=== PATIENT | female | born 1945 | race Caucasian/White ===

== ENCOUNTER → 2018-02-14 | Outpatient (REF) | payer MEDICARE, OTHER ==
[~2018-02-14] MED LIST: ALENDRONATE70 MG PO; AMOXICILLIN/CL875 MG PO; ARTHRITIS PAIN650 MG OR; ASTEPRO0.15 %; ASTEPRO137 MC1; ASTEPRO137 MC1 NAB; AUGMENTIN875TAB PO; BONIVA150 MG PO; CLOBETASOL0.053 EX; CRESTOR10 MG PO; DHA OMEGA OR; FLUARIX QUADRIV1 INJ IM; FLUZONE SPLT1 M1 IM; FOSAMAX70 MG PO; MEDDOSEPAK PO; METOPROL TAR25 MG PO; MULTI VITAMN OR; NASONEX50 MCG/AC IN; NASONEX50 MCG/AC NAB; NEXIUM40 M1 PO; OMEPRAZOLE20 MG PO; OMEPRAZOLE40 MG PO; PAIN RELIEF500 MG PO; PATANASE0.6 %; PRAVASTATIN SOD40 MG PO; PRAVASTATIN20 MG PO; RESTASIS0.05 %; SINGULAIR10 MG PO; SYNTHROID88 MCG PO; TRAMADOL HCL50 MG PO; TYLENOL PM PO; VITAMIN D-32000 UNIT OR; VITAMIN D32000 UNIT PO; ZOSTAVAX IM
[2018-02-14 07:51] LABS: HEMATOCRIT 37.7 % (37.0-47.0); HEMOGLOBIN 12.2 g/dl (12.0-16.0); MEAN CELL VOLUME 99.7 fL CALC (80.0-100.0); MEAN CORPUSCULAR HGB 32.3 pG CALC (26.0-32.0); MEAN CORPUSCULAR HGB CONC 32.4 g/L CALC (32.0-36.0); RED BLOOD COUNT 3.78 mill/uL (4.20-5.60); RED CELL DISTRI WIDTH 15.1 % (11.5-15.5)
[2018-02-14 08:15] LABS: INTERNATIONAL NORMALIZED RATIO 1.4 RATIO (0.7-1.3)
[2018-02-14 08:20] LABS: ALBUMIN 3.1 g/dL (3.2-5.0); ALKALINE PHOSPHATASE 96 u/l (38-126); ANION GAP 11 (6-22 (CALC)); BUN 11 mg/dL (8-23); BUN/CREATININE RATIO 14 (12-20 (CALC)); CARBON DIOXIDE 25 mmol/l (22-30); CHLORIDE 108 mmol/l (95-108); CREATININE 0.7 mg/dL (0.5-1.0); GFR > 60 ML/MIN (>=60 (CALC)); GFR FOR AFR.AMER. > 60 ML/MIN (>=60 (CALC)); POTASSIUM 4.4 mmol/l (3.5-5.1); SGOT/AST 26 u/l (9-36); SODIUM 140 mmol/l (137-146); TOTAL PROTEIN 6.4 g/dL (6.3-8.2)
[2018-02-14 09:08] LABS: URINE BILIRUBIN - DIPSTICK NEGATIVE (NEGATIVE); URINE BLOOD DIPSTICK TRACE-INTACT (NEGATIVE); URINE COLOR YELLOW; URINE GLUCOSE - DIPSTICK NEGATIVE (NEGATIVE); URINE KETONE NEGATIVE (NEGATIVE); URINE NITRITE - DIPSTICK NEGATIVE (Negative); URINE PROTEIN - DIPSTICK NEGATIVE (NEG-TRACE); URINE SPECIFIC GRAVITY 1.015; URINE UROBILINOGEN - DIPSTICK 0.2 E.U./dL (0.2)
[2018-02-14 09:09] LABS: URINE CLARITY CLOUDY; URINE LEUK ESTERASE LARGE (NEGATIVE)
[2018-02-14 09:10] LABS: URINE EPITHELIAL CELLS MODERATE EPI/hpf (0-FEW); URINE RBC 0-2 RBC/hpf (0-5); URINE WBC 20-50 WBC/hpf (0-5)
[2018-02-14 09:11] LABS: URINE BACTERIA MODERATE hpf
== END | disposition home or self-care (01) ==
LOC: LAB 07:33
PROVIDERS: ATTEND Internal Medicine
DX: D64.9 Anemia, unspecified (principal); K72.90 Hepatic failure, unspecified without coma; Z86.718 Personal history of other venous thrombosis and embolism; N39.0 Urinary tract infection, site not specified; B96.1 Klebsiella pneumoniae [K. pneumoniae] as the cause of diseases classified elsewhere

== ENCOUNTER → 2018-06-22 | Outpatient (REF) | payer MEDICARE, OTHER ==
[2018-06-22 07:58] LABS: HEMATOCRIT 40.8 % (37.0-47.0); HEMOGLOBIN 13.5 g/dl (12.0-16.0); MEAN CORPUSCULAR HGB 29.5 pG CALC (26.0-32.0); MEAN CORPUSCULAR HGB CONC 33.1 g/L CALC (32.0-36.0); RED BLOOD COUNT 4.57 mill/uL (4.20-5.60)
[2018-06-22 08:01] LABS: MEAN CELL VOLUME 89.3 fL CALC (80.0-100.0)
[2018-06-22 08:39] LABS: ANION GAP 13 (6-22 (CALC)); BUN 22 mg/dL (8-23); BUN/CREATININE RATIO 27 (12-20 (CALC)); CALCULATED LDLCHOLESTEROL 190 mg/dL (62-129 (CALC)); CARBON DIOXIDE 26 mmol/l (22-30); CHLORIDE 105 mmol/l (95-108); CHOLESTEROL HDL RATIO 4.8 (<4.4 (CALC)); CREATININE 0.8 mg/dL (0.5-1.0); GFR > 60 ML/MIN (>=60 (CALC)); GFR FOR AFR.AMER. > 60 ML/MIN (>=60 (CALC)); HDL CHOLESTEROL 58 mg/dL (>=40); POTASSIUM 4.2 mmol/l (3.5-5.1); SODIUM 139 mmol/l (137-146); TOTAL CHOLESTEROL 281 mg/dl (0-199); TOTAL TRIGLYCERIDES 161 mg/dl (30-149); VLDL CHOLESTROL 32 mg/dl (0-48 (CALC))
[2018-06-22 09:05] LABS: TSH, 3RD GENERATION 2.32 uIU/mL (0.47 - 4.68)
== END | disposition home or self-care (01) ==
LOC: LAB 07:20
PROVIDERS: ATTEND Nurse Practitioner Family
DX: R60.0 Localized edema (principal); I10 Essential (primary) hypertension; E78.5 Hyperlipidemia, unspecified

== ENCOUNTER 2019-09-02 | Emergency (ER) | payer MEDICARE, OTHER ==
[2019-09-02] MEDS ORDERED: VOLTAREN1%GEL TOP (08:19)
[2019-09-02] MEDS ORDERED: CYCLOBENZAPR5 MG PO (08:19)
== END 2019-09-02 09:00 | disposition home or self-care (01) ==
DX: S39.012A Strain of muscle, fascia and tendon of lower back, initial encounter (principal); X58.XXXA Exposure to other specified factors, initial encounter; Z87.442 Personal history of urinary calculi